=== PATIENT | female | born 1975 | race Caucasian/White ===

== ENCOUNTER 2016-09-30 14:48 | Emergency (ER) | payer OTHER ==
[2016-09-30 15:59] VITALS: BP 122/87
--- NOTE | 2016-09-30 17:16 | ED ---
Throat Pain/Nasal Congestion - HPI Summary HPI Summary: 41F presents with left sided facial pain since May. She states that the pain was sharp on her left cheek. She states this week the pain became more frequent this week. She contact her dentist who performed a root canal yesterday and she states since then she has had 40 of these episodes in a day. She went to her primary today who prescribed her gabapentin. She states the episode cause sharp pain for a couple seconds and then she has a dull ache after. She also admits to ringing in left ear. She denies any gait changes. She denies any weakness. She would like something more for pain for the short term till she finds the dose of gabapentin that works for her. She has an appointment with dr Iglesias on monday. - History of Current Complaint Chief Complaint: EDGeneral Time Seen by Provider: 09/30/16 15:51 - Allergies/Home Medications Allergies/Adverse Reactions: Allergies Allergy/AdvReac Type Severity Reaction Status Date / Time No Known Allergies Allergy Verified 09/30/16 14:56 PMH/Surg Hx/FS Hx/Imm Hx Endocrine/Hematology History: Denies: Hx Diabetes Respiratory History: Denies: Hx Asthma - Surgical History Surgery Procedure, Year, and Place: X 2. LEFT WRIST SURGERY Infectious Disease History: No Infectious Disease History: Denies: Traveled Outside the [place] in Last 30 Days - Family History Known Family History: Positive: Hypertension - Social History Alcohol Use: None Substance Use Type: Reports: None Smoking Status (MU): Unknown if Ever Smoked Review of Systems Negative: Fever Negative: Chest Pain Negative: Shortness Of Breath Neurological: Other - left side nerve pain All Other Systems Reviewed And Are Negative: Yes Physical Exam Triage Information Reviewed: Yes Vital Signs On Initial Exam: Initial Vitals Temp Pulse Resp BP Pulse Ox 98.7 F 84 18 135/85 99 09/30/16 14:50 09/30/16 14:50 09/30/16 14:50 09/30/16 14:50 09/30/16 14:50 Vital Signs Reviewed: Yes Appearance: Positive: Well-Appearing Skin: Positive: Warm, Dry Head/Face: Positive: Normal Head/Face Inspection Eyes: Positive: Normal, EOMI, JAIRON, Conjunctiva Clear ENT: Positive: Normal ENT inspection, Pharynx normal, TMs normal Respiratory/Lung Sounds: Positive: Clear to Auscultation, Breath Sounds Present Cardiovascular: Positive: Normal, RRR Neurological: Positive: Sensory/Motor Intact, Alert, Oriented to Person Place, Time, CN Intact II-III, Normal Gait, Heel to Toe, Finger to Nose. Negative: Facial Droop - Kerline Coma Scale Best Eye Response: 4 - Spontaneous Best Motor Response: 6 - Obeys Commands Best Verbal Response: 5 - Oriented Diagnostics - Vital Signs Vital Signs Temp Pulse Resp BP Pulse Ox 09/30/16 15:54 98.9 F 76 18 122/87 99 09/30/16 14:50 98.7 F 84 18 135/85 99 - Laboratory Lab Statement: Any lab studies that have been ordered have been reviewed, and results considered in the medical decision making process. 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 No midline shift evident based on the fourth ventricle. Mild increased density of the lesion and potential associated hyperostosis suggest a meningioma. A vestibular schwannoma is also possible. Correlate with clinical assessment and consider pre and postcontrast MRI for further evaluation. CT Interpretation Completed By: Radiologist EENT Course/Dx - Course Course Of Treatment: 41F presents with left side nerve pain since May. It has increased in frequency till she gets 40 episodes a day the past two days after she got a root canal performed. She saw her primary who started her on gabapentin today. she denies any change in gait or weakness. She states the pain starts near her ears and travels to just above her upper lip and is sharp in nature. normal neuro exam. CT shows possible mass. discussed with dr buck who said outpatient work up is appropiate. explained results to patient and she already has appointment with neurology on Monday. will add pain medication for patient to use when pain becomes extreme. patient understands and agrees with plan - Differential Diagnoses Differential Diagnoses: Dental Abscess, Temporal Arteritis, Trigeminal Neuralgia - Diagnoses Provider Diagnoses: Trigeminal neuralgia of left side of face Discharge - Discharge Plan Condition: Good Disposition: HOME Prescriptions: Ondansetron ODT TAB* [Zofran 4 MG Odt TAB*] 4 mg PO Q6H PRN #20 tab.odt PRN Reason: Nausea oxyCODONE/Acetamin 5/325 MG* [Percocet 5/325 TAB*] 1 tab PO Q6H PRN #20 tab MDD 4 PRN Reason: Pain Patient Education Materials: Trigeminal Neuralgia (ED) Referrals: Maryuri Das MD [Primary Care Provider] - Tim Iglesias MD [Medical Doctor] - Additional Instructions: Take gabapentin as prescribed by primary Take ibuprofen for pain, use narcotic for break through pain Take zofran for nausea every 6 hours as needed Follow up with neurology on Monday Keep journal of potential triggers Return to ED if develop any weakness, gait changes, or any new or worsening symptoms
--- NOTE | 2016-09-30 17:40 | RAD ---
Indication: Innumerable episodes of LEFT side facial pain. Comparison: None. Technique: Noncontrast CT vertex of skull through foramen magnum. Report: Unremarkable cerebral sulci, ventricles, and suprasellar and quadrigeminal plate cisterns. There is asymmetry at the cerebellar pontine angles with suggestion of a 2.6 cm AP by 1.0 cm transverse mildly hyperdense mass at the LEFT cerebellopontine angle which is mildly hyperdense to adjacent brain parenchyma. Associated mild mass effect on the LEFT lateral margin of the boni. No intra or extra-axial hemorrhage or salazar matter white matter obscuration evident. Unremarkable orbital contents. While not definitive there is suggestion of potential hyperostosis along the medial posterior margin of the LEFT temporal bone at the cerebellopontine angle. Grossly unremarkable symmetric contours of the bony internal auditory canals. Clear visualized paranasal sinuses and mastoid air spaces. Unremarkable scalp. 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 No midline shift evident based on the fourth ventricle. Mild increased density of the lesion and potential associated hyperostosis suggest a meningioma. A vestibular schwannoma is also possible. Correlate with clinical assessment and consider pre and postcontrast MRI for further evaluation.
== END 2016-09-30 18:20 | disposition home or self-care (01) ==
LOC: ED 14:48
DX: G50.0 Trigeminal neuralgia (principal)
CPT/HCPCS: 70450; 99282

== ENCOUNTER 2017-06-12 16:00 | Emergency (ER) | payer OTHER ==
[2017-06-12 16:34] VITALS: BP 104/60
--- NOTE | 2017-06-12 17:30 | UC ---
Respiratory Complaint HPI - HPI Summary HPI Summary: Patient presents with a past medical history of brain cancer and recently underwent gamma knife surgery. And also recently traveled to [place]. She reports persistent cough with occassional sputum production. She reports that in the last two days she has had increased fatigue and generalized body aches. She denies any recorded fever, chills, chest pain, abdominal pain, nausea, vomiting, diarrhea, rashes, or joint pain. - History of Current Complaint Chief Complaint: UCRespiratory Stated Complaint: COUGH,ACHES,FATIGUE Time Seen by Provider: 06/12/17 17:10 Hx Obtained From: Patient Hx Last Menstrual Period: 06/06/17 Onset/Duration: Gradual Onset, Lasting Weeks Timing: Constant Severity Initially: Mild Severity Currently: Moderate Character: Cough: Productive Aggravating Factors: Deep Breaths, Recumbent Position Alleviating Factors: Upright Position, Spontaneous Resolution Associated Signs And Symptoms: Positive: URI, Nasal Congestion - Risk Factors Pulmonary Embolism Risk Factors: Negative Cardiac Risk Factors: Negative Pseudomonas Risk Factors: Negative Tuberculosis Risk Factors: Negative - Allergies/Home Medications Allergies/Adverse Reactions: Allergies Allergy/AdvReac Type Severity Reaction Status Date / Time No Known Allergies Allergy Verified 10/04/16 10:57 Home Medications: Home Medications Gabapentin CAP(*) [Neurontin 300 CAP(*)] 06/12/17 [History] Ibuprofen [Advil] 800 mg PO 06/12/17 [History] PMH/Surg Hx/FS Hx/Imm Hx Previously Healthy: Yes - Surgical History Surgical History: Yes Surgery Procedure, Year, and Place: X 2. LEFT WRIST SURGERY - PLATE & SCREW. LASER EYE - Family History Known Family History: Positive: Hypertension - Social History Occupation: Works From/At Home Lives: With Family Alcohol Use: Occasionally Substance Use Type: None Smoking Status (MU): Unknown if Ever Smoked - Immunization History Most Recent Influenza Vaccination: had before left for trip Review of Systems Constitutional: Fatigue Skin: Negative Eyes: Negative ENT: Negative Respiratory: Cough Cardiovascular: Negative Gastrointestinal: Negative Genitourinary: Negative Motor: Negative Psychological: Negative Is Patient Immunocompromised?: Yes - recent gamma knife surgery All Other Systems Reviewed And Are Negative: Yes Physical Exam Triage Information Reviewed: Yes Appearance: Well-Appearing Vital Signs: Initial Vital Signs Temp 98.1 F 06/12/17 16:28 Pulse 70 06/12/17 16:28 Resp 18 06/12/17 16:28 BP 104/60 06/12/17 16:28 Pulse Ox 99 06/12/17 16:28 Vital Signs Reviewed: Yes Eye Exam: Normal ENT Exam: Normal Dental Exam: Normal Neck exam: Normal Neck: Positive: 1 Cardiovascular Exam: Normal Abdominal Exam: Normal Musculoskeletal Exam: Normal Neurological Exam: Normal Psychological Exam: Normal Skin Exam: Normal UC Diagnostic Evaluation - Laboratory O2 Sat by Pulse Oximetry: 99 Respiratory Course/Dx - Course Course Of Treatment: URI discharge: This is a pleasant patient with an upper respiratory tract infection. This appears to be viral and without significant evidence of severe respiratory distress, severe upper or lower airway compromise , hypoxemia, toxicity, shock, hemodynamic or cordiopulmonary instability, epiglottitis, peritonsilar abscess, retropharyngeal abscess, bacterial tracheitis, peumonia, or any disease process requiring other immediate surgical or medical intervention at this time. It is understood that if the patient is not improving as exspected or if other new symptoms or signs of concern develop , other etiologies or diagnoses may need to be considered requrring other tests , treatments, consultations, and/or admission. The diagnoses., plan, expectedcourse, follow-up , and return precautions were discussed and all quesions were answered. The patient was treated with amoxicillin 500 mg tid for 10 days given the fact that she had recent gamma knife surgery and remains symptomatic. - Differential Dx/Diagnosis Differential Diagnosis/HQI/PQRI: Bronchitis - uri bronchitis Provider Diagnoses: uri. bronchitis Discharge - Discharge Plan Condition: Stable Disposition: HOME Prescriptions: Amoxicillin PO (*) [Amoxicillin 500 MG CAP*] 500 mg PO TID #30 cap Patient Education Materials: Acute Bronchitis (ED) Referrals: Maryuri Das MD [Primary Care Provider] -
== END 2017-06-12 17:35 | disposition home or self-care (01) ==
LOC: UCEAST 16:00
DX: Z72.0 Tobacco use (principal); J06.9 Acute upper respiratory infection, unspecified; J40 Bronchitis, not specified as acute or chronic; Z85.841 Personal history of malignant neoplasm of brain
CPT/HCPCS: 99212; G0463